=== PATIENT | female | born 1990 | race Caucasian/White ===

== ENCOUNTER 2016-12-07 22:20 | Outpatient (CLI) | payer OTHER ==
[2016-12-08 00:02] VITALS: BP 129/73; PULSE 92; RESP 16; TEMP 97.2
--- NOTE | 2016-12-25 10:55 | P.MSEPDOC ---
Presenting Problems - Arrival Data Date of Arrival on Unit: 12/07/16 Time of Arrival on Unit: 22:22 Mode of Transport: Ambulatory - Complaint OB-Reason for Admission/Chief Complaint: Possible Onset of Labor Comment: Pt states she has been having ctx all day but they have been 'about 3 minutes apart' for the last hour. Medical History - Information : 3 Para: 2 Term: 1 : 1 Abortions: Spontaneous or Elective: 0 Number of Living Children: 2 - Gestational Age Gestational Age by SARATH (wks/days): 36 Weeks and 1 Days - History Comment: Hx of delivery with last Review of Systems - Review of Systems Constitutional: No problems Breast: No problems ENT: No problems Cardiovascular: No problems Respiratory: No problems Gastrointestinal: No problems Genitourinary: No problems Musculoskeletal: No problems Neurological: No problems Skin: No problems Vital Signs - Temperature Temperature: 97.2 F Temperature Source: Tympanic - Pulse Pulse Oximetery Pulse Rate: 92 Pulse Assessment Method: Pulse Oximetry - Respirations Respiratory Rate: 16 Oxygen Delivery Method: Room Air O2 Sat by Pulse Oximetry: 100 - Blood Pressure Right Arm Blood Pressure: 129/73 Blood Pressure Mean: 91 Blood Pressure Source: Automatic Cuff Medical Screen Scoring (Pre) - Cervical Exam Dilation: 4-7 cm = 2 Effacement: More than 50% = 2 Membranes: Intact - Uterine Contractions Frequency: > 5 minutes apart = 1 Duration: > 40 seconds = 2 Intensity: N/A - Maternal Vital Signs Maternal Temperature: N/A Maternal Blood Pressure: N/A Signs of Preeclampsia: N/A Maternal Respirations: N/A - Maternal Trauma Maternal Trauma: N/A - Assessment Baseline FHR: 130 Heart Rate - NICHD Category: Category I (Normal) = 0 NST: Reactive Position: N/A Station: N/A - Total Score Total Score (Pre): 7 - Level of Risk Level of Risk: Medium (6-9) Physician Notification (Pre) - Physician Notified Physician Notified Date: 12/08/16 Physician Notified Time: 23:42 Physician/Practitioner Notifed:: Dr. Juarez Spoke With: Dr. Juarez New Order Received: Yes (Orders for discharge given.) Disposition - Disposition OB Disposition: Discharge to home Discharge Date: 12/07/16 Discharge Time: 23:51 I agree with the RN Medical Screening Exam: Yes Risk & Benefit of care provided described in d/c instruction: Yes Diagnosis: LABOR THIRD TRI W DELIVERY THIRD TRI, UNSP
== END 2016-12-07 23:51 | disposition home or self-care (01) ==
LOC: FBPOP 22:20
PROVIDERS: ATTEND Obstetrics & Gynecology Obstetrics
DX: O60.14X0 Preterm labor third trimester with preterm delivery third trimester, not applicable or unspecified (principal); Z3A.36 36 weeks gestation of pregnancy
CPT/HCPCS: 59025; 99213

== ENCOUNTER 2016-12-10 20:36 | Inpatient (IN) | payer OTHER ==
[2016-12-10] MEDS ORDERED: LIDOCAINE 1% (PF) 10 MG/ML (30 ML SDV) SQ PRN (20:59)
[2016-12-10] MEDS ORDERED: OXYTOCIN 10 UNIT/ML 1 ML VIAL IM PRN (20:59)
[2016-12-10] MEDS ORDERED: CARBOPROST TROMETHAMINE 250 MCG/ML 1 ML AMP IM PRN (20:59)
[2016-12-10] MEDS ORDERED: METHYLERGONOVINE 0.2 MG/ML 1 ML AMP IM PRN (20:59)
[2016-12-10] MEDS ORDERED: TERBUTALINE 1 MG/ML VIAL SQ PRN (20:59)
[2016-12-10] MEDS ORDERED: PENICILLIN G POTASSIUM 5,000,000 UNIT in DEXTROSE 5% IN WATER 100 ML IVPB STA ×2 (21:00)
[2016-12-10] MEDS ORDERED: LACTATED RINGERS 1,000 ML IV SCH (21:00)
[2016-12-10 21:45] LABS: Basophils % (A) 0 %; CH 27.3; CHCM 32.1; Eosinophils # (A) 0.1 k/uL (0-0.7); Eosinophils % (A) 1 %; HCT 38.6 % (34.0-46.0); HDW 2.83; HGB 12.4 gm/dL (11.4-16.0); Hypochromasia Slight; Luc # (Auto) 0.23; Luc % (Auto) 2; Lymphocytes # (A) 2.3 k/uL (1.0-4.8); Lymphocytes % (A) 21 %; MCH 27.5 pg (25.0-35.0); MCHC 32.2 g/dL (31.0-37.0); MCV 85.4 fL (80.0-100.0); Mean Platelet Volume 8.8; Monocytes # (A) 0.7 k/uL (0-1.0); Monocytes % (A) 7 %; Neutrophils # (A) 7.4 k/uL (1.3-7.7); Neutrophils % (A) 69 %; RBC 4.52 m/uL (3.80-5.40); RDW 12.8 % (11.5-15.5); WBC 10.7 k/uL (3.8-10.6); WBC (Perox) 10.66
--- NOTE | 2016-12-10 22:21 | P.HPOB ---
History of Present Illness H&P Date: 12/10/16 Chief Complaint: 36-3/7 weeks, active labor The patient is a 26-year-old 3 para 02/27/2003 admitted at 36-3/7 weeks as established by last menstrual period and confirmed by second trimester ultrasound. She is admitted in active labor with her cervix 6 cm dilated. Her has been uncomplicated though she is known to be group B strep positive. Obstetrical history: 3 para 02/27/2001 with 137 week delivery followed by one 36 week vaginal delivery, both been uncomplicated. Current statistics are listed in history of present illness. EDC of 01/04/2017 was established by last menstrual period and confirmed by second trimester ultrasound. Laboratory workup demonstrates a blood type of A+ with a negative antibody screen. Rubella status is immune. All other laboratory workup was within normal limits. Initial second trimester Glucola was elevated but followed by a normal three-hour glucose tolerance test. Group B strep status is positive. Gynecologic history: Unremarkable with no history of any infections to include STDs. Review of Systems In view of systems is confined to history of present illness. Past Medical History Past Medical History: No Reported History History of Any Multi-Drug Resistant Organisms: None Reported Past Surgical History: No Surgical Hx Reported Past Anesthesia/Blood Transfusion Reactions: No Reported Reaction Smoking Status: Never smoker Medications and Allergies Home Medications Medication Instructions Recorded Confirmed Type Pnv No.95/Ferrous Fum/Folic AC 1 each PO DAILY 12/04/16 12/10/16 History [ Multivitamin Tablet] Allergies Allergy/AdvReac Type Severity Reaction Status Date / Time No Known Allergies Allergy Verified 12/07/16 22:33 Exam - Vital Signs Vital signs: Vital Signs Temp Pulse Resp BP 12/10/16 20:48 97.9 F 91 16 128/61 Intake and Output 12/10/16 12/10/16 12/10/16 06:59 14:59 22:59 Other: Weight 80.739 kg Patient Weight 12/11/16 06:59 Weight 80.739 kg General, this is a well-developed, well-nourished white female in no acute distress. Her heart has a regular rhythm and rate without murmur. Her lungs are clear to auscultation bilaterally in all gambino. Her abdomen is gravid, nondistended, has normal active bowel sounds, is soft, nontender, and without any palpable masses aside from uterine fundus. Her extremities are without any cyanosis, clubbing, or edema and are nontender to palpation bilaterally. Digital cervical examination demonstrates her her cervix to be 6 cm dilated, 70 % effaced, the vertex in presentation at -2 station. Results Result Diagrams: 12/10/16 21:23 Abnormal Lab Results - Last 24 Hours (Table) 12/10/16 Range/Units 21:23 WBC 10.7 H (3.8-10.6) k/uL Assessment and Plan (1) Group B streptococcal infection in Status: Acute (2) Active labor Status: Acute Plan: The patient is admitted for active management of labor. She has declined epidural analgesia at this time. She will continue to have close maternal and surveillance and expectant management will be practiced. Antibiotic prophylaxis has been started for group B strep. Her bag of water will be left intact and attempt to get adequate antibiotic coverage for the prior to delivery.
[2016-12-10 22:41] VITALS: BMI 30.5
[2016-12-11] MEDS: PENICILLIN G POTASSIUM 2,500,000 UNIT in DEXTROSE 5% IN WATER 100 ML IVPB SCH ×4 (01:36→05:26)
[2016-12-11] MEDS: OXYTOCIN 20 UNITS/1000 ML NS 1,000 ML IV SCH ×2 (01:36→01:42)
[2016-12-11] MEDS ORDERED: LANOLIN CREAM 5 GM TUBE TOPICAL PRN (05:26)
[2016-12-11] MEDS ORDERED: diphenhydrAMINE 50 MG CAP PO PRN (05:26)
[2016-12-11] MEDS ORDERED: BENZOCAINE/MENTHOL SPRAY 1 GM/SPRAY AEROSOL TOPICAL PRN (05:26)
[2016-12-11] MEDS ORDERED: ZOLPIDEM 5 MG TAB PO PRN (05:26)
[2016-12-11] MEDS ORDERED: Acetaminophen-Codeine 300-30mg TAB PO PRN ×2 (05:26)
[2016-12-11] MEDS ORDERED: diphenhydrAMINE 50 MG/ML 1 ML VIAL IVP PRN ×2 (05:26)
[2016-12-11] MEDS ORDERED: HYDROCORTISONE 2.5% RECTAL CREAM 30 GM TUBE RECTAL PRN (05:26)
[2016-12-11] MEDS ORDERED: diphenhydrAMINE 25 MG CAP PO PRN (05:26)
[2016-12-11] MEDS ORDERED: WITCH HAZEL 1 EACH MED..PAD TOPICAL PRN (05:26)
[2016-12-11] MEDS ORDERED: SIMETHICONE 80 MG CHEWABLE PO PRN (05:26)
[2016-12-11] MEDS ORDERED: ACETAMINOPHEN TAB 325 MG TAB PO PRN (05:26)
[2016-12-11] MEDS ORDERED: OXYTOCIN 20 UNITS/1000 ML NS 1,000 ML IV SCH (05:30)
--- NOTE | 2016-12-11 05:30 | P.PROBDLV ---
Vaginal Delivery Note - . Vaginal Delivery Note: The patient is a 26-year-old 3 para 02/27/2003 admitted at 36-3/7 weeks by good dating parameters. She is admitted in early active labor with all signs reassuring as her cervix was 6-7 cm dilated. Her was entirely uncomplicated aside from her labor and group B strep colonization. She was however quite comfortable upon admission and remained so after an IV and antibody prophylaxis was started for group B strep. Her contraction pattern spaced to a fair extent and the intention was to leave her membranes intact until 4 hours after the initial dose of antibiotic for group B strep prophylaxis. Proximate 4 hours after the antibiotic, Pitocin augmentation was started. She remained comfortable over the next couple of hours. Once she got into an adequate labor pattern, artificial rupture of membranes was carried out demonstrating clear fluid. She then progressed quickly to complete and 0 station. She pushed over the course of 1 contraction to a normal spontaneous vaginal delivery of a viable 6 lbs. 12 oz. baby girl with Apgars of 8 at 1 minute and 9 at 5 minutes delivered in the right occiput anterior position. The placenta was delivered spontaneously, intact, and grossly normal with a grossly normal, centrally inserted three-vessel cord. There were no lacerations of the perineum, vagina, or cervix. Estimated blood loss for the case was approximately 100 mL. There were no complications. All sponge, instrument, and needle counts were correct. Both mother and are resting comfortably in recovery. The infant has showed no signs of special care assistance.
[2016-12-11] MEDS: SENNOSIDES-DOCUSATE SODIUM 1 EACH TAB PO SCH ×2 (07:42→22:20)
[2016-12-11] MEDS: IBUPROFEN 600 MG TAB PO PRN ×3 (07:42→21:01)
--- NOTE | 2016-12-12 08:10 | P.DS ---
Providers Date of admission: 12/10/16 21:00 Expected date of discharge: 12/12/16 Attending physician: Kuldip Morrison Primary care physician: Melody Joseph [facility] Hospital Course: This is a 26-year-old white female 3 para 2002 EDC 01/04/2017 at 36-3/7 weeks' gestation. Patient presented in spontaneous active labor, essentially unremarkable. Group B strep cultures were positive, patient was treated with penicillin G per protocol. Please see dictated history and physical for details. Patient delivered a liveborn female infant vaginally, scores 8 and 9 at one and 5 minutes respectively. Infant weighed 6 lbs. 12 oz. or 3065 g. Estimated blood loss was 100 mL, there were no lacerations or defects to repair. Please see dictated delivery note for details. Patient is doing well today. She is voiding, ambulating and passing flatus without difficulty. Vital signs are stable and she is afebrile. Fundus is firm and in the midline, symmetric and 18 week size. Extremities are negative for edema. Orcas infant is doing well. Patient is being discharged home later today in very good condition. She will follow-up in the office with me in 6 weeks. I have reminded her no intercourse , tampons or douching. She will use [id number] Motrin products as needed for pain. I have given her prescription for a double electric breast pump. Patient will call with any fevers shakes or chills, foul smelling or copious lochia, with the passage of large blood clots, with any pain not alleviated by [id number] products, or indeed with any concerns. Patient Condition at Discharge: Good Plan - Discharge Summary New Discharge Prescriptions: No Action Pnv No.95/Ferrous Fum/Folic AC [ Multivitamin Tablet] 1 each PO DAILY Discharge Medication List Pnv No.95/Ferrous Fum/Folic AC [ Multivitamin Tablet] 1 each PO DAILY [History] Follow up Appointment(s)/Referral(s): Melody Joseph MD [Primary Care Provider] - 6 Weeks Discharge Disposition: HOME SELF-CARE
[2016-12-12 08:22] VITALS: BP 120/69; PULSE 66; RESP 20; TEMP 97.8
[2016-12-12] MEDS: SENNOSIDES-DOCUSATE SODIUM 1 EACH TAB PO SCH (08:37)
[2016-12-12] MEDS: IBUPROFEN 600 MG TAB PO PRN (10:00)
== END 2016-12-12 11:30 | disposition home or self-care (01) | DRG 775 ==
LOC: FBPOP 20:36 → 4FBP 21:00
PROVIDERS: ADMIT Obstetrics & Gynecology; ATTEND Obstetrics & Gynecology
PROC: 10E0XZZ Delivery of Products of Conception, External Approach (ICD-10-PCS; principal; 2016-12-10)
PROC: 10907ZC Drainage of Amniotic Fluid, Therapeutic from Products of Conception, Via Natural or Artificial Opening (ICD-10-PCS; principal; 2016-12-10)
DX: O60.14X0 Preterm labor third trimester with preterm delivery third trimester, not applicable or unspecified (principal); O99.824 Streptococcus B carrier state complicating childbirth; Z37.0 Single live birth; Z3A.36 36 weeks gestation of pregnancy
CPT/HCPCS: 59025; 85025; 88307; 99213

== ENCOUNTER 2021-09-22 09:30 | Inpatient (IN) | payer BC ==
[2021-09-22] MEDS ORDERED: SODIUM CHLORIDE 0.9% 1,000 ML IV STA (09:45)
[2021-09-22 10:13] LABS: Basophils # (A) 0.1 k/uL (0-0.2); Basophils % (A) 1 %; Eosinophils # (A) 0.1 k/uL (0-0.7); Eosinophils % (A) 1 %; HCT 47.2 % (34.0-46.0); HGB 15.3 gm/dL (11.4-16.0); Lymphocytes # (A) 2.3 k/uL (1.0-4.8); Lymphocytes % (A) 37 %; MCH 30.1 pg (25.0-35.0); MCHC 32.4 g/dL (31.0-37.0); MCV 92.8 fL (80.0-100.0); Mean Platelet Volume 7.8; Monocytes # (A) 0.4 k/uL (0-1.0); Monocytes % (A) 6 %; Neutrophils # (A) 3.3 k/uL (1.3-7.7); Neutrophils % (A) 53 %; Platelet Count 265 k/uL (150-450); RBC 5.08 m/uL (3.80-5.40); RDW 12.4 % (11.5-15.5); WBC 6.2 k/uL (3.8-10.6)
--- NOTE | 2021-09-22 10:14 | ED ---
Neuro HPI - General Chief Complaint: Neuro Symptoms/Deficit Stated Complaint: speech concerns, headache Time Seen by Provider: 09/22/21 09:45 Source: patient, family, RN notes reviewed Mode of arrival: ambulatory Limitations: no limitations - History of Present Illness Is the patient presenting with stroke symptoms?: Yes Initial Comments: 31-year-old female with no prior history of migraine headaches or history of stroke like symptoms who states she went to bed at 11 PM last night feeling her usual self woke up this morning with a left-sided headache and also trouble processing information with respect to verbal and written words. He also trouble expressing herself in a timely fashion no blurry vision no dysphasia no focal weakness to her upper or lower extremities no ataxic type symptoms. She states the headache was left temporal pole in location and achy dull with some shooting type pains mild to moderate in severity. She did take a Motrin about 1 hour prior to arrival she states. No other current complaints or modifying factors - Related Data Home Medications: Home Medications Medication Instructions Recorded Confirmed No Known Home Medications 09/22/21 09/22/21 Allergies/Adverse Reactions: Allergies Allergy/AdvReac Type Severity Reaction Status Date / Time No Known Allergies Allergy Verified 09/22/21 10:43 Review of Systems ROS Statement: Those systems with pertinent positive or pertinent negative responses have been documented in the HPI. ROS Other: All systems not noted in ROS Statement are negative. General Exam - General Exam Comments Initial Comments: This is a well-developed well-nourished awake alert oriented 4 female Limitations: no limitations General appearance: alert, anxious Head exam: Present: atraumatic, normocephalic, normal inspection Eye exam: Present: normal appearance, PERRL, EOMI. Absent: scleral icterus, conjunctival injection, periorbital swelling ENT exam: Present: normal exam, mucous membranes moist Neck exam: Present: normal inspection, full ROM, other (No stridor JVD or bruits). Absent: tenderness, meningismus, lymphadenopathy Respiratory exam: Present: normal lung sounds bilaterally. Absent: respiratory distress, wheezes, rales, rhonchi, stridor Cardiovascular Exam: Present: regular rate, normal rhythm, normal heart sounds. Absent: systolic murmur, diastolic murmur, rubs, gallop, clicks GI/Abdominal exam: Present: soft, normal bowel sounds. Absent: distended, tenderness, guarding, rebound, rigid Extremities exam: Present: normal inspection, full ROM, normal capillary refill. Absent: tenderness, pedal edema, joint swelling, calf tenderness Back exam: Present: normal inspection Neurological exam: Present: alert, oriented X3, CN II-XII intact Psychiatric exam: Present: normal affect, normal mood Skin exam: Present: warm, dry, intact, normal color. Absent: rash Stroke MDM - Lab Data Result diagrams: 09/22/21 09:51 09/22/21 09:51 Lab Results 09/22/21 09/22/21 09/22/21 Range/Units 09:51 09:51 09:51 WBC 6.2 (3.8-10.6) k/uL RBC 5.08 (3.80-5.40) m/uL Hgb 15.3 (11.4-16.0) gm/dL Hct 47.2 H (34.0-46.0) % MCV 92.8 (80.0-100.0) fL MCH 30.1 (25.0-35.0) pg MCHC 32.4 (31.0-37.0) g/dL RDW 12.4 (11.5-15.5) % Plt Count 265 (150-450) k/uL MPV 7.8 Neutrophils % 53 % Lymphocytes % 37 % Monocytes % 6 % Eosinophils % 1 % Basophils % 1 % Neutrophils # 3.3 (1.3-7.7) k/uL Lymphocytes # 2.3 (1.0-4.8) k/uL Monocytes # 0.4 (0-1.0) k/uL Eosinophils # 0.1 (0-0.7) k/uL Basophils # 0.1 (0-0.2) k/uL PT 10.8 (9.0-12.0) sec INR 1.0 (<1.2) APTT 25.5 (22.0-30.0) sec Sodium 139 (137-145) mmol/L Potassium 4.5 (3.5-5.1) mmol/L Chloride 106 (98-107) mmol/L Carbon Dioxide 27 (22-30) mmol/L Anion Gap 6 mmol/L BUN 16 (7-17) mg/dL Creatinine 0.78 (0.52-1.04) mg/dL Est GFR (CKD-EPI)AfAm >90 (>60 ml/min/1.73 sqM) Est GFR (CKD-EPI)NonAf >90 (>60 ml/min/1.73 sqM) Glucose 99 (74-99) mg/dL Calcium 9.1 (8.4-10.2) mg/dL Magnesium 2.0 (1.6-2.3) mg/dL Total Bilirubin 0.5 (0.2-1.3) mg/dL AST 19 (14-36) U/L ALT 15 (4-34) U/L Alkaline Phosphatase 54 (38-126) U/L Creatine Kinase 44 (30-135) U/L Troponin I (0.000-0.034) ng/mL C-Reactive Protein <0.5 (<1.0) mg/dL Total Protein 6.7 (6.3-8.2) g/dL Albumin 4.2 (3.5-5.0) g/dL TSH 1.300 (0.465-4.680) mIU/L 09/22/21 Range/Units 09:51 WBC (3.8-10.6) k/uL RBC (3.80-5.40) m/uL Hgb (11.4-16.0) gm/dL Hct (34.0-46.0) % MCV (80.0-100.0) fL MCH (25.0-35.0) pg MCHC (31.0-37.0) g/dL RDW (11.5-15.5) % Plt Count (150-450) k/uL MPV Neutrophils % % Lymphocytes % % Monocytes % % Eosinophils % % Basophils % % Neutrophils # (1.3-7.7) k/uL Lymphocytes # (1.0-4.8) k/uL Monocytes # (0-1.0) k/uL Eosinophils # (0-0.7) k/uL Basophils # (0-0.2) k/uL PT (9.0-12.0) sec INR (<1.2) APTT (22.0-30.0) sec Sodium (137-145) mmol/L Potassium (3.5-5.1) mmol/L Chloride (98-107) mmol/L Carbon Dioxide (22-30) mmol/L Anion Gap mmol/L BUN (7-17) mg/dL Creatinine (0.52-1.04) mg/dL Est GFR (CKD-EPI)AfAm (>60 ml/min/1.73 sqM) Est GFR (CKD-EPI)NonAf (>60 ml/min/1.73 sqM) Glucose (74-99) mg/dL Calcium (8.4-10.2) mg/dL Magnesium (1.6-2.3) mg/dL Total Bilirubin (0.2-1.3) mg/dL AST (14-36) U/L ALT (4-34) U/L Alkaline Phosphatase (38-126) U/L Creatine Kinase (30-135) U/L Troponin I <0.012 (0.000-0.034) ng/mL C-Reactive Protein (<1.0) mg/dL Total Protein (6.3-8.2) g/dL Albumin (3.5-5.0) g/dL TSH (0.465-4.680) mIU/L - NIH Stroke Scale 1a. Level of Consciousness: (0) alert 1b. LOC Questions: (0) answers correctly 1c. LOC Commands: (0) performs tasks correctly 2. Best Gaze: (0) normal 3. Visual: (0) no visual loss 4. Facial Palsy: (0) normal symmetrical movement 5a. Motor Arm Left: (0) no drift 5b. Motor Arm Right: (0) no drift 6a. Motor Leg Left: (0) no drift 6b. Motor Leg Right: (0) no drift 7. Limb Ataxia: (0) absent 8. Sensory: (0) normal 9. Best Language: (0) no aphasia 10. Dysarthria: (0) normal 11. Extinction/Inattention: (0) no abnormality - Medical Decision Making Image reviewed no acute processes seen. I did have a discussion the patient family. The findings patient apparently is still having episodes that appear to be consistent with expressive aphasia and possibly receptive aphasia. The case with family as well as with rid patient be admitted with consultation by neurology. Patient does seem to think that she is improving. - EKG Data -: EKG Interpreted by Me EKG shows normal: sinus rhythm (Normal sinus rhythm of 79 ID interval 175 QRS duration 84 QT/QTC 373/[address]-T wave changes) Past Medical History Past Medical History: No Reported History History of Any Multi-Drug Resistant Organisms: None Reported Past Surgical History: No Surgical Hx Reported Past Anesthesia/Blood Transfusion Reactions: No Reported Reaction Past Psychological History: No Psychological Hx Reported Smoking Status: Never smoker Past Alcohol Use History: None Reported Past Drug Use History: None Reported - Past Family History Mother Family Medical History: No Reported History Course Vital Signs 09/22/21 09/22/21 09/22/21 09:33 10:30 10:36 Temperature 98 F Pulse Rate 100 82 82 Respiratory 18 16 16 Rate Blood Pressure 104/68 108/77 108/77 O2 Sat by Pulse 99 99 99 Oximetry 09/22/21 09/22/21 09/22/21 10:45 11:00 11:15 Temperature Pulse Rate 76 78 71 Respiratory 15 16 16 Rate Blood Pressure 110/74 116/80 107/74 O2 Sat by Pulse 96 98 97 Oximetry 09/22/21 11:36 Temperature Pulse Rate 78 Respiratory 16 Rate Blood Pressure 107/74 O2 Sat by Pulse 100 Oximetry Critical Care Time Critical Care Time: Yes Total Critical Care Time: 31 Critical Care Time: Care time included initial presentation with history physical labs x-rays pat ient was a code stroke. Evaluation patient several occasions discussion with patient family members. Discussed with the admitting physician admission orders and documentation of the above Disposition Clinical Impression: Cerebrovascular accident (CVA) Disposition: ADMITTED IP TO THIS [facility] Condition: Stable Referrals: None,Stated [Primary Care Provider] - 1-2 days Decision Date: 09/22/21 Decision Time: 13:00
[2021-09-22 10:27] LABS: ALT 15 U/L (4-34); AST 19 U/L (14-36); African American GFR (CKD) >90 (>60 ml/min/1.73 sqM); Albumin 4.2 g/dL (3.5-5.0); Alkaline Phosphatase 54 U/L (38-126); Anion Gap 6 mmol/L; Blood Urea Nitrogen 16 mg/dL (7-17); Calcium 9.1 mg/dL (8.4-10.2); Carbon Dioxide 27 mmol/L (22-30); Chloride 106 mmol/L (98-107); Creatine Kinase 44 U/L (30-135); Glucose 99 mg/dL (74-99); Non-African American GFR(CKD) >90 (>60 ml/min/1.73 sqM); Potassium 4.5 mmol/L (3.5-5.1); Sodium 139 mmol/L (137-145); Total Bilirubin 0.5 mg/dL (0.2-1.3); Total Protein 6.7 g/dL (6.3-8.2)
[2021-09-22 10:28] LABS: Partial Thromboplastin Time 25.5 sec (22.0-30.0); Prothrombin Time 10.8 sec (9.0-12.0)
--- NOTE | 2021-09-22 10:28 | CT ---
EXAMINATION TYPE: CT brain wo con for TPA DATE OF EXAM: 09/22/2021 COMPARISON: None HISTORY: 31-year-old female Neuro deficit, acute, stroke suspected. Intermittent slurred speech, expr essive aphasia, headache TECHNIQUE: Examination was done in axial plane without intravenous contrast. Coronal and sagittal r econstructions performed. CT DLP: 1099.6 mGycm Automated exposure control for dose reduction was used. FINDINGS: There is no evidence of acute intracranial hemorrhage, acute ischemic changes, mass, mass-effect, or extra-axial fluid collection. There is no effacement of cerebral sulci or basal subarachnoid cister ns. There is no hydrocephalus. Slightly smaller left lateral ventricle likely congenital variation. There is no midline shift. Booth-white matter distinction is preserved. Paranasal sinuses and mastoid air cells well pneumatized. Orbits and globes are intact. IMPRESSION: No acute intracranial abnormality seen.
--- NOTE | 2021-09-22 10:55 | CT ---
EXAMINATION TYPE: CT angio head neck CT DLP: 487.1 mGycm, Automated exposure control for dose reduction was used. DATE OF EXAM: 09/22/2021 10:38 AM COMPARISON: CT head of the same date. CLINICAL INDICATION:Female, 31 years old with history of Neuro deficit, acute, stroke suspected; PHH, Neuro deficit TECHNIQUE: Axially acquired helical CT angiogram of the head and neck was obtained with contrast util izing 75 cc of Isovue-370 administered intravenously. Axial images are supplemented with 3D reconstru ctions which were post-processed at an independent workstation. NASCET criteria used. FINDINGS: CTA HEAD: No evidence of acute intracranial hemorrhage, mass effect, or midline shift. The ventricles, sulci, a nd cisterns are unremarkable. The visualized portions of the internal carotid arteries, middle cerebral arteries, anterior cerebral arteries, and posterior cerebral arteries are patent. The basilar and vertebral arteries are patent. CTA NECK: Right Carotid System: The common carotid artery and external carotid artery are patent. The carotid bifurcation demonstrate s no evidence of hemodynamically significant stenosis. The remaining portions of the internal carotid artery demonstrate normal size without significant narrowing. Left Carotid System: The common carotid artery and external carotid artery are patent. The carotid bifurcation demonstrate s no evidence of hemodynamically significant stenosis. The remaining portions of the internal carotid artery demonstrate normal size without significant narrowing. Vertebral arteries are patent without evidence hemodynamically significant stenosis. There is a bovine aortic arch. The origins of the great vessels are patent. No evidence of hemodynami abi significant stenosis. IMPRESSION: 1. No evidence of dissection of the cervical internal carotid arteries or vertebral arteries or any e vidence of significant stenosis at the carotid bifurcations. 2. No evidence of high-grade stenosis or intracranial aneurysm.
--- NOTE | 2021-09-22 10:58 | XR ---
EXAMINATION TYPE: XR chest 2V DATE OF EXAM: 09/22/2021 COMPARISON: NONE TECHNIQUE: PA and lateral views submitted. HISTORY: Altered mental status FINDINGS: The lungs are clear and there is no pneumothorax, pleural effusion, or focal pneumonia. Heart size normal. No failure. IMPRESSION: 1. No acute process.
[2021-09-22 11:40] LABS: C Reactive Protein <0.5 mg/dL (<1.0)
--- NOTE | 2021-09-22 13:49 | P.HPIM ---
History of Present Illness H&P Date: 09/22/21 Chief Complaint: left sided headache, slurred speech 31-year-old woman with no significant medical history except for migraines presented for left-sided headache and slurred speech. Patient says that she went to sleep around 11 PM yesterday and felt in her usual state of health, however, when she woke up this morning she had slurred speech and left-sided headache. She also had some numbness of her face. Family at bedside also notes the patient had difficulty expressing words and reading words out loud despite showing recognition and understanding of the wart itself. Given the concern of slurred speech, she came to the emergency room for further evaluation at the request of her [id number]. She denies fevers, chills, nausea, vomiting, chest pain, palpitations, syncope, presyncope, cough, dyspnea, abdominal pain, constipation, diarrhea, dysuria, dyschezia, numbness/weakness of extremities. She also denies photophobia, phonophobia, visual changes. She denies difficulty swallowing. Patient further denies drinking, drugs, smoking. She's never been diagnosed with hyperlipidemia. She does not have a family history of strokes. She has never had an issue like this before. However, notably she reports that when she's had migraines in the past she has visual changes which she loses half of her revision depending on the side in which she has migraine. In the emergency room, patient was afebrile, 108/77, heart rate 82, 99% on room air. CBC, chemistries, liver function tests were all unremarkable. Coags were unremarkable. Initial troponin was less than 0.012. CRP was less than 0.5. TSH was 1.3. CK was 44. Brain CT was negative for acute intracranial abnormality. CT angiography of the head and neck showed no evidence of dissection of the cervical internal carotid arteries and vertebral arteries or any significant stenosis. Chest x-ray appeared normal. EKG demonstrated normal sinus rhythm with normal axis and no ischemic changes. All Systems reviewed and pertinent positives and negatives noted in HPI, all other symptoms are negative Gen: in no apparent distress, resting comfortably in bed Eyes: PERRL, no scleral injection or icterus HENT: normocephalic, atraumatic, good hearing acuity, moist mucous membranes Neck: no tracheal deviation, full range of motion Resp: good air exchange, breathing comfortably with no accessory muscle use, no tactile fremitus CVS: good distal perfusion x 4, no pitting edema GI: soft, NTTP, ND, no hepatosplenomegaly : no suprapubic tenderness, no CVAT, christine catheter not present MSK: no clubbing, no cyanosis, no noted contractures of extremities Skin: no noted rashes, petechiae; temperature of skin is appropriate Neuro: moving all extremities without signs of weakness, CN II-XII intact Psych: cooperative, euthymic mood, insight and judgment intact Labs and imaging reviewed as above Assessment/plan: Left-sided headache Slurred speech Aphasia (Suspect this is complex migraines versus less likely TIA) -Admit to observation, telemetry -Neurology consult -TSH, A1c, lipid panel -MRI pending -Echo pending -PT/OT/ST Patient is full code Past Medical History Past Medical History: No Reported History History of Any Multi-Drug Resistant Organisms: None Reported Past Surgical History: No Surgical Hx Reported Past Anesthesia/Blood Transfusion Reactions: No Reported Reaction Past Psychological History: No Psychological Hx Reported Smoking Status: Never smoker Past Alcohol Use History: None Reported Past Drug Use History: None Reported - Past Family History Mother Family Medical History: No Reported History Medications and Allergies Home Medications Medication Instructions Recorded Confirmed Type No Known Home Medications 09/22/21 09/22/21 History Allergies Allergy/AdvReac Type Severity Reaction Status Date / Time No Known Allergies Allergy Verified 09/22/21 10:43 Physical Exam Osteopathic Statement: *. No significant issues noted on an osteopathic structural exam other than those noted in the History and Physical/Consult. Vitals: Vital Signs Temp Pulse Resp BP Pulse Ox 09/22/21 11:36 78 16 107/74 100 09/22/21 11:15 71 16 107/74 97 09/22/21 11:00 78 16 116/80 98 09/22/21 10:45 76 15 110/74 96 09/22/21 10:36 82 16 108/77 99 09/22/21 10:30 82 16 108/77 99 09/22/21 09:33 98 F 100 18 104/68 99 Intake and Output 09/21/21 09/22/21 09/22/21 22:59 06:59 14:59 Other: Weight 74.843 kg Results CBC & Chem 7: 09/22/21 09:51 09/22/21 09:51 Labs: Abnormal Lab Results - Last 24 Hours (Table) 09/22/21 Range/Units 09:51 Hct 47.2 H (34.0-46.0) %
[2021-09-22] MEDS: ACETAMINOPHEN TAB 325 MG TAB PO PRN ×2 (15:24→21:10)
[2021-09-22] MEDS: SODIUM CHLORIDE 0.9% 1,000 ML IV SCH (15:24)
[2021-09-23] MEDS: SODIUM CHLORIDE 0.9% 1,000 ML IV SCH ×3 (01:02→21:00)
[2021-09-23 05:51] LABS: Basophils % (A) 0 %; Eosinophils # (A) 0.1 k/uL (0-0.7); Eosinophils % (A) 2 %; HCT 43.5 % (34.0-46.0); HGB 14.1 gm/dL (11.4-16.0); Lymphocytes # (A) 2.2 k/uL (1.0-4.8); Lymphocytes % (A) 41 %; MCH 30.7 pg (25.0-35.0); MCHC 32.5 g/dL (31.0-37.0); MCV 94.5 fL (80.0-100.0); Mean Platelet Volume 7.8; Monocytes # (A) 0.3 k/uL (0-1.0); Monocytes % (A) 6 %; Neutrophils # (A) 2.6 k/uL (1.3-7.7); Neutrophils % (A) 49 %; Platelet Count 238 k/uL (150-450); RDW 12.9 % (11.5-15.5); WBC 5.3 k/uL (3.8-10.6)
[2021-09-23 06:06] LABS: African American GFR (CKD) >90 (>60 ml/min/1.73 sqM); Anion Gap 2 mmol/L; Blood Urea Nitrogen 13 mg/dL (7-17); Calcium 8.7 mg/dL (8.4-10.2); Carbon Dioxide 26 mmol/L (22-30); Chloride 108 mmol/L (98-107); Glucose 80 mg/dL (74-99); Magnesium 2.1 mg/dL (1.6-2.3); Non-African American GFR(CKD) >90 (>60 ml/min/1.73 sqM); Potassium 4.6 mmol/L (3.5-5.1); Sodium 136 mmol/L (137-145)
[2021-09-23] MEDS ORDERED: ASPIRIN 81 MG PO STA (08:18)
--- NOTE | 2021-09-23 08:18 | P.CNNES ---
History of Present Illness Consult date: 09/22/21 Requesting physician: Kip Titus Reason for Consult: TIA History of Present Illness: Patient is a 31-year-old female with history of migraine with aura came to the hospital today at 9:30 AM for possible TIA versus complex migraine. Patient states that she was fine yesterday. This morning she woke up at 7 AM and had a bad headache pointing to the left temporal region. She rated at 6/10. While she was in bed, she turned over and look at the cell phone and went on social media. She tried to read, could not follow and felt some visual disturbance on the right side, almost as if some words for flushing. She tried to talk to her toddler, and speech was affected, couldn't speak quickly, was speaking slow with effort. She was fine walking and there was no numbness tingling or focal weakness. No dizziness. She talked to her mom, who noticed that patient was talking "funny". At 8:04 AM she texted her that she was feeling bad, cannot read, cannot write and her speech is affected. Her called her and in the beginning she was talking fine, but then she started speaking which she could not understand at all. Patient started crying on the phone. Patient's talked to the kids who told the mom was talking "super slow" and they could not understand her. Her headache persisted and she kept trying to read words and could not read right. She took ibuprofen 800 mg. She was having some paraphasic errors, as she said closet instead of pocket. Her motor skills were fine. She never had anything like this. Patient's brought her to the hospital and arrived here at 9:30 AM. Vital signs on arrival blood pressure 104/68, pulse rate 100 temperature 98.0. Blood test shows normal CBC, PT/PTT, normal CMP. TSH is normal. CT head showed no acute intracranial abnormality. I personally reviewed CT head, agree with the findings. CTA of head and neck revealed no evidence of dissection of the cervical internal carotid arteries or vertebral arteries or any evidence of sig nificant stenosis at the carotid bifurcations. No evidence of high-grade stenosis or intracranial aneurysm. EKG shows sinus rhythm. Chest x-ray shows no acute process. Patient does not take any medications at home. Patient is otherwise very healthy. She does not take any control pills although she does have copper containing IUD. Patient states that she has had headache all day, and after taking Tylenol, it has come down to 1/10 at this time. Her speech has improved almost back to baseline. Patient states that she had her first migraine with aura when she was age 14 in which she developed visual disturbance, as she remembers when she was having the symptom, she was not able to see one half of her mother's face. She did have a mild headache present. She took Tylenol and the symptoms went away. She has been having migraine with aura consisting of visual disturbance with m issing part of the vision off and on. These are occurring about 2 or 3 times a year. She usually takes ibuprofen, turns things off, lays down and the headache resolves within an hour. She never had any speech difficulty in the past. Her migraines are about 5-6/10 on a pain scale. Patient denies any excessive caffeine, sore intake. She denies any tobacco or alcohol. Patient does have strong family history of migraines in her mother, grandmother, but not in her children. Review of Systems All 14 points of review of system reviewed, unremarkable except as mentioned above in detail. Past Medical History Past Medical History: No Reported History History of Any Multi-Drug Resistant Organisms: None Reported Past Surgical History: No Surgical Hx Reported Past Anesthesia/Blood Transfusion Reactions: No Reported Reaction Past Psychological History: No Psychological Hx Reported Smoking Status: Never smoker Past Alcohol Use History: None Reported Past Drug Use History: None Reported - Past Family History Mother Family Medical History: No Reported History Medications and Allergies Home Medications Medication Instructions Recorded Confirmed Type No Known Home Medications 09/22/21 09/22/21 History Allergies Allergy/AdvReac Type Severity Reaction Status Date / Time No Known Allergies Allergy Verified 09/22/21 10:43 Physical Examination - Vital Signs Vital Signs: Vital Signs Temp Pulse Resp BP Pulse Ox 09/22/21 15:34 69 18 106/65 99 09/22/21 14:34 68 16 102/71 98 09/22/21 13:34 71 16 107/70 98 09/22/21 11:36 78 16 107/74 100 09/22/21 11:15 71 16 107/74 97 09/22/21 11:00 78 16 116/80 98 09/22/21 10:45 76 15 110/74 96 09/22/21 10:36 82 16 108/77 99 09/22/21 10:30 82 16 108/77 99 09/22/21 09:33 98 F 100 18 104/68 99 Intake and Output 09/22/21 09/22/21 09/22/21 06:59 14:59 22:59 Other: Weight 74.843 kg Patient is a young female, very pleasant, in no acute distress. Patient is alert awake oriented to time place and person. Speech and language functions are normal. Patient can name and repeat very well. Attention, concentration and fund of knowledge is adequate. On cranial examination, pupils are equal, round and reacting to light, visual gambino are full on confrontation, extraocular muscles are intact with no nystagmus. Face is symmetric, tongue protrudes to the midline. Palatal elevation and sensation normal, hearing and shoulder shrug normal, facial sensation normal. Shoulder shrug normal. On muscle strength testing, there is no pronator drift and the strength is normal in arms and legs distally and proximally. Deep tendon reflexes are 1 in the upper limbs, 2 at the knees 1 ankles and plantars downgoing bilaterally. Sensory to touch is equal with no neglect. Cerebellar function showed no ataxia for lqjukl-so-lqvv testing. No dysdiadochokinesia. Tone and bulk of muscles normal. Gait deferred. On general examination, there is no carotid bruit or murmur, S1-S2 audible. Abdomen is soft nontender. No organomegaly, bowel sounds present. Chest is clear. Peripheral pulses are present. No edema. Results - Laboratory Findings CBC and BMP: 09/23/21 05:16 09/23/21 05:16 Abnormal Lab Findings: Abnormal Labs 09/22/21 09:51 Hct 47.2 H Assessment and Plan Assessment: * Probable complex migraine. TIA less likely. * History of migraine with aura. * Strong family history of migraines. * Use of copper containing IUD. Plan: * Patient is undergoing TIA workup with MRI of the brain, 2-D echo * Hemoglobin A1c, lipid panel. * Her symptoms have mostly resolved. * Aspirin 324 mg 1 dose. * If the TIA workup is negative, then would recommend discharge on Imitrex 50 mg or Fioricet as needed for migraine. * Continue telemetry monitoring. * Neurology will follow. Thank you for the consult.
[2021-09-23 09:07] LABS: Chol/HDL Ratio 2.74 Ratio; LDL Cholesterol,Calculated 67.2 mg/dL (0.0-131.0); VLDL Calculation 10.24 mg/dL (5.00-40.00)
--- NOTE | 2021-09-23 09:24 | CA ---
Transthoracic Echo Report Name: Elijah Ramsay Age: 31 Gender: F : 1990 Exam Date: 09/22/2021 15:51 Exam Location: [place] [facility] Ht (in): 64 Wt (lb): 165 Ordering Physician: Tesfaye Malagon MD Attending/Referring Phys: [employer] Sakina Avitia RDCS Procedure CPT: Indications: aphasia Cardiac Hx: Technical Quality: Good Contrast 1: Total Dose (mL): Contrast 2: Total Dose (mL): MEASUREMENTS (Male / Female) Normal Values 2D ECHO LV Diastolic Diameter PLAX 4.1 cm 4.2 - 5.9 / 3.9 - 5.3 cm LV Systolic Diameter PLAX 2.4 cm IVS Diastolic Thickness 0.9 cm 0.6 - 1.0 / 0.6 - 0.9 cm LVPW Diastolic Thickness 0.9 cm 0.6 - 1.0 / 0.6 - 0.9 cm LV Relative Wall Thickness 0.4 RV Internal Dim ED PLAX 3.1 cm LA Systolic Diameter LX 2.8 cm 3.0 - 4.0 / 2.7 - 3.8 cm LA Volume 31.1 cm??? 18 - 58 / 22 - 52 cm??? M-MODE Aortic Root Diameter MM 2.7 cm MV E Point Septal Separation 0.3 cm AV Cusp Separation MM 1.7 cm DOPPLER AV Peak Velocity 134.4 cm/s AV Peak Gradient 7.2 mmHg MV Area PHT 3.8 cm??? Mitral E Point Velocity 83.9 cm/s Mitral A Point Velocity 75.9 cm/s Mitral E to A Ratio 1.1 MV Deceleration Time 202.0 ms MV E' Velocity 10.0 cm/s Mitral E to MV E' Ratio 8.4 FINDINGS Left Ventricle Left ventricular ejection fraction is estimated at 55-60 %. Left ventricular cavity size normal. Left ventricular wall thickness normal. Right Ventricle Normal right ventricular size and function. Unable to estimate the right ventricular systolic pressure. Right Atrium Normal right atrial size. Left Atrium Normal left atrial size. No evidence for an atrial septal defect. Mitral Valve Structurally normal mitral valve. No mitral stenosis, regurgitation or prolapse. Aortic Valve Trileaflet aortic valve. No aortic valve stenosis or regurgitation. Tricuspid Valve Structurally normal tricuspid valve. No tricuspid stenosis, regurgitation or prolapse. Pulmonic Valve Structurally normal pulmonic valve. Pericardium Normal pericardium. No pericardial effusion. Aorta Normal size aortic root and proximal ascending aorta. CONCLUSIONS Normal LV size and systolic function. No significant abnormality in the Doppler exam. No pericardial effusion Previewed by: Dr. Sandy Tinsley MD (Electronically Signed) Final Date: 23 September 2021 09:23
--- NOTE | 2021-09-23 14:27 | P.PN ---
Subjective Progress Note Date: 09/23/21 Patient was seen for a follow-up. Patient is left-hand dominant. Patient states the headache has almost resolved. Rates it 03/08. No nausea vomiting, light or noise sensitivity. Patient admits that she was slightly photophobic yesterday. Her visual disturbance and speech difficulty has resolved. Telemetry showing sinus bradycardia, sinus rhythm. No other arrhythmia. Objective - Vital Signs Vital signs: Vital Signs Temp 98.7 F 09/23/21 08:00 Pulse 62 09/23/21 08:00 Resp 18 09/23/21 08:00 BP 110/57 09/23/21 08:00 Pulse Ox 98 09/23/21 08:00 FiO2 Intake & Output 09/22/21 09/23/21 09/23/21 18:59 06:59 18:59 Intake Total 120 128 Balance 120 128 Weight 74.843 kg Intake: IV 20 10 Invasive Line 1 20 10 Oral 100 118 Other: Voiding Method Toilet # Voids 2 - Exam Patient is a young female, very pleasant, in no acute distress. Patient is alert awake oriented to time place and person. Speech and language functions are normal. No aphasia or dysarthria. Patient can name all 5 objects presented, repeat without any difficulty. Patient can read, write without any difficulty. No paraphasic errors. No hesitancy. Attention, concentration and fund of knowledge is adequate. On cranial examination, pupils are round and reacting to light, visual gambino are full on confrontation, with no neglect on double simultaneous stimulation. Her extraocular muscles are intact with no nystagmus. Face is symmetric, tongue protrudes to the midline. Palatal elevation and sensation normal, hearing and shoulder shrug normal, facial sensation normal. Shoulder shrug normal. On muscle strength testing, there is no pronator drift and the strength is normal in arms and legs distally and proximally. Deep tendon reflexes are symmetric, 1 in the upper limbs, 2 at the knees, 1 at ankles and plantars downgoing bilaterally. Sensory to touch is equal with no neglect on double simultaneous stimulation involving the face, arms or the legs. Cerebellar function showed no ataxia for vkkvad-rq-iciv testing. No ataxia for pxvt-rq-yvky testing. No dysdiadochokinesia. Tone and bulk of muscles normal. Gait normal. On general examination, there is no carotid bruit or murmur, S1-S2 audible. Abdomen is soft nontender. Chest is clear. Peripheral pulses are present. No edema. - Labs CBC & Chem 7: 09/23/21 05:16 09/23/21 05:16 Labs: Abnormal Lab Results - Last 24 Hours (Table) 09/23/21 Range/Units 05:16 Sodium 136 L (137-145) mmol/L Chloride 108 H (98-107) mmol/L Assessment and Plan Assessment: * Probable complex migraine. TIA less likely. * History of migraine with aura. * Strong family history of migraines. * Use of copper containing IUD. Plan: * Patient is undergoing TIA workup. Await MRI of the brain. * 2-D echo revealed normal left-ventricular size and systolic function. EF is 55-60%. Left atrial size is normal. No evidence of an inter atrial septal defect. * Hemoglobin A1c 5.5, * Lipid panel is perfect, cholesterol 122, LDL 67, triglycerides 51 and HDL 44. No indications for statins because LDL is <70. TSH normal.. * If the MRI is negative, then would recommend discharge on Ubrelvy 50 mg or Fioricet as needed for migraine. Update 4 PM: MRI of the brain revealed left proximal temporal lobe acute infarct. I personally reviewed MRI of the brain, and appears to involve small area of left temporal lobe. Appears embolic in nature. I came back and saw the patient, discussed MRI results. Patient's repeat examination performed as mentioned above, and is completely normal. NIH stroke scale is 0. No deficits noted. Patient will undergo MRV head to rule out venous sinus thrombus. I personally reviewed CTA of head and neck, and is normal. No thrombus noted. Cardiology consult for EDUARD. Hematology consultation for hypercoagulable workup. Patient is on IUD, but is nonmedicated, only copper containing. Continue telemetry monitoring. Continue aspirin 325 mg daily. Hold off on DAP, as her NIH stroke scale is 0. May risk for hemorrhage with DAP. We will follow. Discussed with patient's in detail as well. Time with Patient: Greater than 30
--- NOTE | 2021-09-23 15:29 | MR ---
EXAMINATION TYPE: MR brain wo con DATE OF EXAM: 09/23/2021 COMPARISON: 09/22/2021 CT brain HISTORY: Aphasia CONTRAST: Performed utilizing 0 mL intravenous Gadavist gadolinium contrast. TECHNIQUE: Multiplanar, multiecho imaging on a 3.0 Vidya magnet is performed through the brain. Stud y is performed within 24 hours of arrival to the hospital. The craniovertebral junction is normal. The pituitary is normal. Diffusion-weighted imaging is performed. There is a left temporal area of increased signal on diffus ion compatible with an acute infarct. The suspected acute infarct is also evident on the T2 weighted images as increased signal. Significan t mass effect is not identified. Ventricles and sulci are appropriate for the patient age. IMPRESSIONS: 1. Left proximal temporal lobe acute infarct.
--- NOTE | 2021-09-23 16:14 | P.PN ---
Subjective Progress Note Date: 09/23/21 Hospital course: Patient is a very pleasant 31-year-old female with past medical history of migraines and copper IUD placement. She presented to the emergency department with a chief complaint of left-sided headache and slurred speech. Patient reported going to bed the night before around 11 PM in usual state of health and awakening the next morning with slurred speech and word finding difficulties, as well as a severe headache to left temporal region. She underwent full evalua tion in the emergency department. Vital signs were unremarkable. CBC, coags, and CMP all unremarkable. Troponin less than 0.012. TSH 1.300. And lipid profile unremarkable. CT head negative for acute intercranial abnormality. CTA head and neck negative for acute process showing no evidence of dissection, stenosis, or aneurysm. EKG showing normal sinus rhythm at 79 bpm with no noted T-wave or ST abnormalities. Echocardiogram revealing normal EF 55-60% with no reported valvular or structural abnormalities. Physical exam: Patient was seen and fully evaluated at the bedside. She reports full resolution of slurred speech and expressive aphasia. She reports mild headache remains to left temporal region otherwise denies having any other complaints including dizziness, lightheadedness, changes in vision or hearing, dysphagia, chest pain, palpitations, shortness of breath, or experiencing any numbness/tingling/weakness in her face, lips, tongue, or upper and lower extremities. Awaiting MRI to be completed. Vital signs reviewed and stable. General: Nontoxic, no distress and appears stated age. Derm: Skin warm and dry, normal coloration for ethnicity. Head: Atraumatic, normocephalic and symmetric. Eyes: EOMs intact, no lid lag, and anicteric sclera Mouth: no lip lesions, mucus membranes moist Cardiovascular: regular rate and rhythm with normal S1S2, no murmur, positive posterior tibial pulses bilaterally, and cap refill < 2 seconds. Lungs: Respirations even, regular, and unlabored on room air. Lungs CTA bilaterally, no rhonchi, no rales, no wheezing, and no accessory muscle usage. Abdominal: soft, nontender to palpation, no guarding, no appreciable organomega ly Ext: ROM intact. No gross muscle atrophy, no edema, no contractures Neuro: Speech clear, face symmetrical and CN II-XII grossly intact with no noted focal neuro deficits Psych: Alert and oriented to person, place, time, and situation. Appropriate and pleasant affect. Assessment and Plan of Care: Left-sided headache Aphasia Slurred speech History of migraines with visual auras -Neurology following -Lipid profile unremarkable. -Echocardiogram revealing normal EF of 55-60% with no reported valvular or structural abnormalities. -Aspirin daily -Neurochecks -Telemetry monitoring CODE STATUS: Full code DVT prophylaxis: Lovenox Discussed with: Patient and RN Anticipated discharge date: clinical course to determine, awaiting MRI results Anticipated discharge place: Home. A total of 36 minutes was spent on the care of this complex patient more than 50% of the time was spent in counseling and care coordination. Objective - Vital Signs Vital signs: Vital Signs Temp 97.7 F 09/23/21 03:47 Pulse 60 09/23/21 03:47 Resp 19 09/23/21 03:47 BP 101/62 09/23/21 03:47 Pulse Ox 97 09/23/21 03:47 FiO2 Intake & Output 09/22/21 09/23/21 09/23/21 18:59 06:59 18:59 Intake Total 120 118 Balance 120 118 Weight 74.843 kg Intake: IV 20 Invasive Line 1 20 Oral 100 118 Other: Voiding Method Toilet # Voids 2 - Labs CBC & Chem 7: 09/23/21 05:16 09/23/21 05:16 Labs: Abnormal Lab Results - Last 24 Hours (Table) 09/22/21 09/23/21 Range/Units 09:51 05:16 Hct 47.2 H (34.0-46.0) % Sodium 136 L (137-145) mmol/L Chloride 108 H (98-107) mmol/L
[2021-09-23] MEDS: ENOXAPARIN 40 MG/0.4 ML SYRINGE SQ SCH (18:06)
--- NOTE | 2021-09-23 19:32 | MR ---
EXAMINATION TYPE: MR venography head wo con DATE OF EXAM: 09/23/2021 COMPARISON: MRI 09/23/2021 HISTORY: CVA, rule out venous sinus thrombus TECHNIQUE: Departmental MR venography without contrast protocol FINDINGS: Dural venous sinuses are widely patent. No evidence for venous sinus thrombosis. No incidental findin gs. IMPRESSION: Negative examination.
[2021-09-23] MEDS: ACETAMINOPHEN TAB 325 MG TAB PO PRN (23:29)
[2021-09-24 01:48] LABS: Cardiolipin Ab IgG Interp NEGATIVE (NEGATIVE); Cardiolipin Ab IgM Interp NEGATIVE (NEGATIVE); Cardiolipin IgA Antibody <2.0 U/mL; Cardiolipin IgM Antibody <1.5 U/mL
[2021-09-24] MEDS: ACETAMINOPHEN TAB 325 MG TAB PO PRN (08:22)
[2021-09-24] MEDS: ASPIRIN 325 MG TAB PO SCH (08:23)
[2021-09-24] MEDS: ENOXAPARIN 40 MG/0.4 ML SYRINGE SQ SCH (08:23)
[2021-09-24] MEDS ORDERED: fentaNYL (PF) 50 MCG/ML 2 ML AMP ONE (08:59)
[2021-09-24] MEDS ORDERED: SODIUM CHLORIDE 0.9% 500 ML 500 ML IV ONE (09:12)
--- NOTE | 2021-09-24 09:20 | P.CRDCN ---
History of Present Illness History of present illness: This is a pleasant 31-year-old female with history of migraine with aura. 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 We have been asked to see in consultation for EDUARD. Patient presented to the hospital came to the hospital with left-sided headache and slurred speech. MRI of the brain revealed left proximal temporal lobe acute infarct. Patient seen and examined at bedside, no acute distress. She denies any chest pain or shortness of breath. Overall her symptoms have improved. No further specific difficulties. She denies any history of CAD, SD, prior stroke, hypertension, dyslipidemia. She denies any family history of strokes or heart disease. She denies any alcohol, illicit drug use or tobacco use. DIAGNOSTICS * EKG reveals sinus rhythm, rate 79, no acute ST ST wave abnormalities noted. * Echocardiogram revealed EF 5560 percent, no significant wall motion or valvular abnormalities. No pericardial effusion * Telemetry tracings indicate sinus mechanism, no evidence of A. fib/flutter. No evidence of any arrhythmia * Brain MRI with left proximal temporal lobe acute infarct * CT angiogram head and neck revealed no evidence of high-grade stenosis of intracranial aneurysm. No evidence of dissection of the cervical internal carotid arteries and vertebral arteries * Chest is seen with no significant cardiopulmonary process * Laboratory reviewed, sodium 136, potassium 4.6, BUN 13, serum creatinine 0.7, cbc unremarkable, triglycerides 51, cholesterol 122, LDL 67, HDL 44, TSH within normal limits * Current home cardiac medications include none REVIEW OF SYSTEMS At the time of my exam: Patient symptoms have resolved CONSTITUTIONAL: Denies fever or chills. CARDIOVASCULAR: Denies chest pain, shortness of breath, orthopnea, PND or palpitations. RESPIRATORY: Denies cough. GASTROINTESTINAL: Denies abdominal pain, diarrhea, constipation, nausea or vomiting. MUSCULOSKELETAL: Denies myalgias. NEUROLOGIC: Denies numbness, tingling, headacbe or weakness. ENDOCRINE: Denies fatigue, weight change, polydipsia or polyurina. GENITOURINARY: Denies burning, hematuria or urgency with micturation. HEMATOLOGIC: Denies history of anemia or bleeding. PHYSICAL EXAMINATION Blood pressure 107/73, heart rate 87, afebrile, saturation 98% on room air CONSTITUTIONAL: No apparent distress. HEENT: Head is normocephalic. Pupils are equal, round. Sclerae anicteric. Mucous membranes of the mouth are moist. No JVD. No carotid bruit. CHEST EXAMINATION: Lungs are clear to auscultation. No chest wall tenderness is noted on palpation or with deep breathing. HEART EXAMINATION: Regular rate and rhythm. S1, S2 heard. No murmurs, gallops or rub. ABDOMEN: Soft, nontender. Positive bowel sounds. EXTREMITIES: 2+ peripheral pulses, no lower extremity edema and no calf tenderness. NEUROLOGIC EXAMINATION: Patient is awake, alert and oriented x3. ASSESSMENT Acute left proximal temporal lobe CVA History of migraines Family history of migraines PLAN Plan for EDUARD with Dr. Michael today. Patient is agreeable I have discussed the risks, benefits and alternative therapies for the above-m entioned procedure and for both sedation/analgesia, as they pertain to this patient. The patient has indicated understanding and acceptance of the risks and procedures discussed. Questions have been answered appropriately and she is agreeable to move forward with the above-stated procedure. Nurse practitioner note has been reviewed by physician. Signing provider agrees with the documented findings, assessment, and plan of care. Past Medical History Past Medical History: No Reported History History of Any Multi-Drug Resistant Organisms: None Reported Past Surgical History: No Surgical Hx Reported Past Anesthesia/Blood Transfusion Reactions: No Reported Reaction Past Psychological History: No Psychological Hx Reported Smoking Status: Never smoker Past Alcohol Use History: None Reported Past Drug Use History: None Reported - Past Family History Mother Family Medical History: No Reported History Medications and Allergies Home Medications Medication Instructions Recorded Confirmed Type No Known Home Medications 09/22/21 09/22/21 History Allergies Allergy/AdvReac Type Severity Reaction Status Date / Time No Known Allergies Allergy Verified 09/22/21 10:43 Physical Exam Vitals: Vital Signs Temp Pulse Pulse Resp BP Pulse Ox 09/24/21 04:36 98.2 F 76 17 108/71 97 09/24/21 01:31 59 L 96 16 09/23/21 23:20 98.7 F 65 16 136/66 97 09/23/21 20:35 98.9 F 71 16 112/71 99 09/23/21 20:34 59 L 96 16 09/23/21 16:00 95 18 116/80 98 09/23/21 12:00 68 18 118/69 98 09/23/21 08:00 98.7 F 62 18 110/57 98 Intake and Output 09/23/21 09/24/21 09/24/21 22:59 06:59 14:59 Intake Total 550 10 Output Total 250 250 Balance 300 -240 Intake: IV 10 10 Invasive Line 1 10 10 Oral 540 Output: Urine 250 250 Other: Voiding Method Toilet Toilet Results 09/23/21 05:16 09/23/21 05:16 Lipids 09/23/21 Range/Units 05:16 Triglycerides 51.20 (0.00-149.00) mg/dL Cholesterol 122.00 (0.00-200.00) mg/dL HDL Cholesterol 44.60 (40.00-60.00) mg/dL Cholesterol/HDL Ratio 2.74 Ratio Current Medications Generic Name Dose Route Start Last Admin Trade Name Rikq PRN Reason Stop Dose Admin Acetaminophen 650 mg 09/22/21 15:17 09/23/21 23:29 Acetaminophen Tab 325 Mg Tab PO 650 mg Q6HR PRN Administration Fever and/ or Pain Aspirin 325 mg 09/24/21 09:00 Aspirin 325 Mg Tab PO DAILY SHERRIE Enoxaparin Sodium 40 mg 09/23/21 16:00 09/23/21 18:06 Enoxaparin 40 Mg/0.4 Ml Syringe SQ 40 mg DAILY SHERRIE Administration Sodium Chloride 1,000 mls @ 100 mls/hr 09/22/21 13:45 09/23/21 21:00 Saline 0.9% IV Not Given .Q10H SHERRIE Intake and Output 09/23/21 09/24/21 09/24/21 22:59 06:59 14:59 Intake Total 550 10 Output Total 250 250 Balance 300 -240 Intake: IV 10 10 Invasive Line 1 10 10 Oral 540 Output: Urine 250 250 Other: Voiding Method Toilet Toilet 09/23/21 05:16 09/23/21 05:16
[2021-09-24] MEDS ORDERED: BENZOCAINE SPRAY 1 CAN MUCOUS MEM ONE (09:25)
[2021-09-24] MEDS ORDERED: fentaNYL (PF) 50 MCG/ML 2 ML AMP IVP ONE (09:36)
[2021-09-24] MEDS: MIDAZOLAM 2 MG/2 ML VIAL IVP ONE ×2 (09:36→09:53)
[2021-09-24 11:47] LABS: APTT 40 Sec(s) (<43); Dilute Russell Viper Venom 37 Sec(s) (<44)
--- NOTE | 2021-09-24 11:54 | ECHOT ---
TRANSESOPHAGEAL ECHOCARDIOGRAM INDICATION: CVA to rule out cardiac source of thromboembolic phenomenon. PROCEDURE NOTE: After obtaining informed consent, transesophageal echocardiogram was performed in left lateral position using an Omniplane probe. Local and IV sedation were obtained with Xylocaine spray, Versed and fentanyl. Total sedation time was 10 minutes. She tolerated the procedure well without any obvious immediate complications. We performed 2D, color Doppler and spectral analysis. FINDINGS: 1. No intracardiac thrombus within the left atrial appendage, left atrium, right atrium, right ventricle. 2. Left ventricle has normal size and systolic function. 3. Interatrial septum: There is no evidence of thrv-[id number] shunt by color-flow Doppler or [id number]-nh-[id number] shunt by agitated saline contrast study. 4. Ascending aorta appears within normal limits. 5. There is trace mitral and tricuspid regurgitation noted. 6. Aortic valve is a 3-leaflet valve without any evidence of stenosis. CONCLUSIONS: No intracardiac source for thromboembolic phenomenon. No evidence of shunting across the interatrial septum. Normal ejection fraction. MMODL / IJN: [id number] /
--- NOTE | 2021-09-24 13:49 | P.CONS ---
History of Present Illness - Reason for Consult Consult date: 09/24/21 CVA - History of Present Illness Mrs Ramsay is a 31-year-old woman with history of migraines who presented for left-sided headache and slurred speech. Initially on presentation felt to have been related to migraines or TIA, although further work-up confirmed MRI of the brain confirmed left temporal lobe acute infarct. Patient further denies drinking, drugs, smoking. She's never been diagnosed with hyperlipidemia. She does not have a family history of strokes. She has never had an issue like this before. Review of Systems All systems: negative Constitutional: Reports as per HPI Past Medical History Past Medical History: No Reported History History of Any Multi-Drug Resistant Organisms: None Reported Past Surgical History: No Surgical Hx Reported Past Anesthesia/Blood Transfusion Reactions: No Reported Reaction Past Psychological History: No Psychological Hx Reported Smoking Status: Never smoker Past Alcohol Use History: None Reported Past Drug Use History: None Reported - Past Family History Mother Family Medical History: No Reported History Medications and Allergies Home Medications Medication Instructions Recorded Confirmed Type No Known Home Medications 09/22/21 09/22/21 History Allergies Allergy/AdvReac Type Severity Reaction Status Date / Time No Known Allergies Allergy Verified 09/22/21 10:43 Physical Exam Vitals: Vital Signs Temp Pulse Pulse Resp BP Pulse Ox 09/24/21 12:00 18 113/65 93 L 09/24/21 08:00 99.1 F 87 16 107/73 98 09/24/21 04:36 98.2 F 76 17 108/71 97 09/24/21 01:31 59 L 96 16 09/23/21 23:20 98.7 F 65 16 136/66 97 09/23/21 20:35 98.9 F 71 16 112/71 99 09/23/21 20:34 59 L 96 16 09/23/21 16:00 95 18 116/80 98 Intake and Output 09/23/21 09/24/21 09/24/21 22:59 06:59 14:59 Intake Total 550 10 160 Output Total 250 250 Balance 300 -240 160 Intake: IV 10 10 160 Invasive Line 1 10 10 10 Oral 540 Output: Urine 250 250 Other: Voiding Method Toilet Toilet - Constitutional General appearance: cooperative, no acute distress - EENT Eyes: EOMI ENT: NA/AT - Neck Neck: normal ROM - Respiratory Respiratory: bilateral: diminished - Cardiovascular Rhythm: regular - Gastrointestinal General gastrointestinal: soft - Integumentary Integumentary: pale - Musculoskeletal Musculoskeletal: generalized weakness, right sided weakness Results CBC & Chem 7: 09/23/21 05:16 09/23/21 05:16 Assessment and Plan (1) Cerebrovascular accident (CVA) Current Visit: Yes Status: Acute Code(s): I63.9 - CEREBRAL INFARCTION, UNSPECIFIED SNOMED Code(s): 960644015 Plan: Await antiphospholipid work-up Patient to see Dr. Sally Abreu in 3-4 weeks for full hypercoag work-up Attests: I have completed the full history and physical and developed the above impression and plan, agree with dictation, dictated as a ascribe.
[2021-09-24 14:16] LABS: Prothrombin 20210A Mutation Negative
--- NOTE | 2021-09-24 15:35 | P.PN ---
Subjective Progress Note Date: 09/24/21 Hospital course: Patient is a very pleasant 31-year-old female with past medical history of migraines and copper IUD placement. She presented to the emergency department with a chief complaint of left-sided headache and slurred speech. Patient reported going to bed the night before around 11 PM in usual state of health and awakening the next morning with slurred speech and word finding difficulties, as well as a severe headache to left temporal region. She underwent full evalua tion in the emergency department. Vital signs were unremarkable. CBC, coags, and CMP all unremarkable. Troponin less than 0.012. TSH 1.300. And lipid profile unremarkable. CT head negative for acute intercranial abnormality. CTA head and neck negative for acute process showing no evidence of dissection, stenosis, or aneurysm. EKG showing normal sinus rhythm at 79 bpm with no noted T-wave or ST abnormalities. Echocardiogram revealing normal EF 55-60% with no reported valvular or structural abnormalities. MRI resulting revealing acute infarct to left proximal temporal lobe. Notified neurologist, Dr. Farrar and updated him on results. Patient to continue daily aspirin and neurology re commending to hold off on Plavix and atorvastatin at this time secondary to unremarkable lipid profile. Consult was placed to cardiology for EDUARD and hematology for hypercoagulable workup. MRV negative. Cardiolipin IgG, IgA, and IgM are negative. Lupus anticoagulant negative. Prothrombin mutation also negative. EDUARD negative for PFO showing no intracardiac source for thromboembolic phenomenon. Physical exam: Patient seen and fully evaluated at bedside. Patient's and her best friend were also at bedside and everyone was updated on results and current plan of care. Awaiting clearance from neurology the tentative plan is for patient to be discharged home tomorrow morning with Holter monitor. Patient remains free from any difficulties with speech. She reports having a slight headache remaining to left temporal region and feeling a little "foggy". She continues to deny having any changes in her vision, hearing, tinnitus, chest pain, palpitations, shortness of breath, or experiencing any numbness/tingling/weakness in her extremities. Vital signs reviewed and stable. General: Nontoxic, no distress and appears stated age. Derm: Skin warm and dry, normal coloration for ethnicity. Head: Atraumatic, normocephalic and symmetric. Eyes: EOMs intact, no lid lag, and anicteric sclera Mouth: no lip lesions, mucus membranes moist Cardiovascular: regular rate and rhythm with normal S1S2, no murmur, positive posterior tibial pulses bilaterally, and cap refill < 2 seconds. Lungs: Respirations even, regular, and unlabored on room air. Lungs CTA bilaterally, no rhonchi, no rales, no wheezing, and no accessory muscle usage. Abdominal: soft, nontender to palpation, no guarding, no appreciable organomegaly Ext: ROM intact. No gross muscle atrophy, no edema, no contractures Neuro: Speech clear, face symmetrical and CN II-XII grossly intact with no noted focal neuro deficits Psych: Alert and oriented to person, place, time, and situation. Appropriate and pleasant affect. Assessment and Plan of Care: Acute embolic CVA with MRI evidence of acute left proximal temporal lobe infarct Left-sided headache Aphasia Slurred speech History of migraines with visual auras -Neurology following -Cardiology following -Lipid profile unremarkable. -Echocardiogram revealing normal EF of 55-60% with no reported valvular or structural abnormalities. -MRI resulting revealing acute infarct to left proximal temporal lobe. -Continue daily aspirin and neurology recommending to hold off on Plavix and atorvastatin at this time secondary to unremarkable lipid profile. -MRV negative. -Cardiolipin IgG, IgA, and IgM are negative. Lupus anticoagulant negative. Prothrombin mutation also negative. -EDUARD negative for PFO showing no intracardiac source for thromboembolic phenome non. -Neurochecks -Telemetry monitoring -Order placed for Holter monitor as patient will need discharged home with Holter monitor CODE STATUS: Full code DVT prophylaxis: Lovenox Discussed with: Patient, patient and RN Anticipated discharge date: Likely tomorrow morning Anticipated discharge place: Home. A total of 39 minutes was spent on the care of this complex patient more than 50% of the time was spent in counseling and care coordination. Objective - Vital Signs Vital signs: Vital Signs Temp 98.2 F 09/24/21 04:36 Pulse 76 09/24/21 04:36 Resp 17 09/24/21 04:36 BP 108/71 09/24/21 04:36 Pulse Ox 97 09/24/21 04:36 FiO2 Intake & Output 09/23/21 09/24/21 09/24/21 18:59 06:59 18:59 Intake Total 256 560 Output Total 500 Balance 256 60 Intake: IV 20 20 Invasive Line 1 20 20 Oral 236 540 Output: Urine 500 Other: Voiding Method Toilet - Labs CBC & Chem 7: 09/23/21 05:16 09/23/21 05:16
[2021-09-24] MEDS: SODIUM CHLORIDE 0.9% 1,000 ML IV SCH (16:26)
[2021-09-25] MEDS: SODIUM CHLORIDE 0.9% 1,000 ML IV SCH (02:52)
--- NOTE | 2021-09-25 09:11 | P.PN ---
Subjective Progress Note Date: 09/24/21 Patient was seen for a follow-up. Further history obtained from the patient. Patient states that the night prior to her stroke, she slept in usual state of health between 10-11 PM. She woke up at 7 AM with stroke symptoms including bad headache and visual symptoms, therefore the stroke probably happened overnight. Patient was not a candidate for TPA. Her NIH stroke scale was also 0 in the ER. Patient has history of sinus headaches sporadically. Patient is left-hand dominant. Patient states the headache has almost resolved. Rates it 1/10. No nausea vomiting, light or noise sensitivity. Her visual disturbance and speech difficulty has completely resolved. Objective - Vital Signs Vital signs: Vital Signs Temp 99.1 F 09/24/21 08:00 Pulse 87 09/24/21 08:00 Resp 18 09/24/21 12:00 BP 113/65 09/24/21 12:00 Pulse Ox 93 L 09/24/21 12:00 FiO2 Intake & Output 09/23/21 09/24/21 09/24/21 18:59 06:59 18:59 Intake Total 256 560 170 Output Total 500 Balance 256 60 170 Intake: IV 20 20 170 Invasive Line 1 20 20 20 Oral 236 540 0 Output: Urine 500 Other: Voiding Method Toilet - Exam Patient's mental status, speech and language functions are normal. Patient's naming and repetition is normal. No paraphasic errors noted. Sensations equal. No pronator drift. No ataxia. Tone and bulk of muscles normal. - Labs CBC & Chem 7: 09/23/21 05:16 09/23/21 05:16 Assessment and Plan Assessment: * Probable complex migraine, with acute ischemic stroke. * No embolic source identified. * History of migraine with aura. * Strong family history of migraines. * Use of copper containing IUD. Plan: * EDUARD was performed today, which revealed no intracardiac thrombus within the left atrial appendage, left atrium, right atrium or right ventricle. Normal left ventricular size and function. Interatrial septum intact with no evidence of left to right shunt by color flow Doppler, all [id number] shunt by agitated saline contrast study. Ascending aorta appears within normal limits. There is trace MR, TR. Aortic valves normal. Cardiology input appreciated. * MRV brain negative for venous sinus thrombus. * CTA of head and neck negative for any occlusion, thrombus. * Telemetry monitoring showing no arrhythmia. * Agree with 30 day event monitoring rule out PAF. * Hypercoagulable workup including factor V Leiden mutation, lupus anticoagulants, cardiolipin antibodies, prothrombin gene mutation, all normal or negative. Hematology on board. * Hemoglobin A1c 5.5, * Lipid panel is perfect, cholesterol 122, LDL 67, triglycerides 51 and HDL 44. No indications for statins because LDL is <70. TSH normal.. * MRI of the brain revealed left proximal temporal lobe acute infarct. I per sonally reviewed MRI of the brain, and appears to involve small area of left temporal lobe. Appears embolic in nature. * Continue aspirin 325 mg daily. Hold off on DAP, as her NIH stroke scale is 0. May risk for hemorrhage with DAP. * Patient recommended to keep a watch of any headaches or aura's. She may benefit from migraine preventative medication, like Inderal. Recommended never to take Triptans group of medications. * Discussed with patient's in detail as well. Addendum: Dr. Coreas gave me a call at 7:31 PM, (at request of patient's ) and discussed with me about the patient's MRI and clinical condition. We discussed about DAP. As patient has no deficits whatsoever, I feel, adding Plavix to the regimen has more risks than benefits. Therefore we will maintain on aspirin 325 mg only. He also discussed about adding Lipitor. Informed Dr Coreas that patient's li pids are perfectly normal. He suggested short-term Lipitor 10 mg daily. Time with Patient: Greater than 30
[2021-09-25] MEDS: ENOXAPARIN 40 MG/0.4 ML SYRINGE SQ SCH (09:14)
[2021-09-25] MEDS: ACETAMINOPHEN TAB 325 MG TAB PO PRN (09:14)
[2021-09-25] MEDS: ASPIRIN 325 MG TAB PO SCH (09:14)
[2021-09-25 10:04] VITALS: BP 107/69; PULSE 67; RESP 16; TEMP 98.6
--- NOTE | 2021-09-25 10:26 | P.DS ---
Providers Date of admission: 09/23/21 15:40 Expected date of discharge: 09/25/21 Attending physician: Tesfaye Malagon MD Consults: 09/22/21 13:33 Consult Physician Routine Consulting Provider: Justyn Farrar Consult Reason/Comments: TIA Do you want consulting provider notified?: Yes 09/23/21 15:52 Consult Physician Urgent Consulting Provider: Mir Michael Consult Reason/Comments: EDUARD, pt with acute CVA Do you want consulting provider notified?: Yes 09/23/21 15:54 Consult Physician Urgent Consulting Provider: Len Palumbo Consult Reason/Comments: hypercoagulable workup Do you want consulting provider notified?: Yes Primary care physician: Stated None Hospital Course: Discharge Diagnosis: 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 Patient has been started on aspirin 325 mg and Lipitor 10 mg daily, neurology recommending holding off on Plavix at this time. Acute ischemic CVA is believed to be secondary to complex migraine. Patient started on propranolol low dose for migraine prophylaxis. Patient also being discharged home on 30 day event monitor. Patient to follow up outpatient with PCP, cardiology, neurology, and hematology. Complex migraine Hospital Course: Patient is a very pleasant 31-year-old female with past medical history of migraines and copper IUD placement. She presented to the emergency department with a chief complaint of left-sided headache and slurred speech. Patient reported going to bed the night before around 11 PM in usual state of health and awakening the next morning with slurred speech and word finding difficulties, as well as a severe headache to left temporal region. She underwent full evaluation in the emergency department. Vital signs were unremarkable. CBC, coags, and CMP all unremarkable. Troponin less than 0.012. TSH 1.300. And lipid profile unremarkable. CT head negative for acute intercranial abnormality. CTA head and neck negative for acute process showing no evidence of dissection, stenosis, or aneurysm. EKG showing normal sinus rhythm at 79 bpm with no noted T-wave or ST abnormalities. Echocardiogram revealing normal EF 55-60% with no reported valvular or structural abnormalities. MRI resulting revealing acute infarct to left proximal temporal lobe. Notified neurologist, Dr. Farrar and updated him on results. Patient to continue daily aspirin and neurology recommending to hold off on Plavix and atorvastatin at this time secondary to unremarkable lipid profile. Consult was placed to cardiology for EDUARD and hematology for hypercoagulable workup. MRV negative. Cardiolipin IgG, IgA, and IgM are negative. Lupus anticoagulant negative. Prothrombin mutation also negative. EDUARD negative for PFO showing no intracardiac source for thromboembolic phenomenon. Event Monitor was placed and patient to undergo monitoring 30 days and follow up outpatient with cardiology. Patient is medically stable at this time she has been diagnosed with an acute ischemic CVA believed to be resulted from complex migraine. She has been started on aspirin 325 mg daily, Lipitor 10 mg daily, and propranolol 20 mg twice daily. Patient to follow up outpatient with neurology, cardiology, and hematology. Physical exam: Vital signs reviewed and stable. General: Nontoxic, no distress and appears stated age. Derm: Skin warm and dry, normal coloration for ethnicity. Head: Atraumatic, normocephalic and symmetric. Eyes: EOMs intact, no lid lag, and anicteric sclera Mouth: no lip lesions, mucus membranes moist Cardiovascular: regular rate and rhythm with normal S1S2, no murmur, positive posterior tibial pulses bilaterally, and cap refill < 2 seconds. Lungs: Respirations even, regular, and unlabored on room air. Lungs CTA bilaterally, no rhonchi, no rales, no wheezing, and no accessory muscle usage. Abdominal: soft, nontender to palpation, no guarding, no appreciable organomegaly Ext: ROM intact. No gross muscle atrophy, no edema, no contractures Neuro: Speech clear, face symmetrical and CN II-XII grossly intact with no noted focal neuro deficits Psych: Alert and oriented to person, place, time, and situation. Appropriate and pleasant affect. A total of 39 minutes of time were spent preparing this complex discharge summary. Pt was discharged on 09/25/21 at 10:19 AM. Patient Condition at Discharge: Stable Plan - Discharge Summary New Discharge Prescriptions: New Aspirin 325 mg PO DAILY 60 Days #60 tab Atorvastatin [Lipitor] 10 mg PO HS 30 Days #30 tab Propranolol [Inderal] 20 mg PO BID 30 Days #60 tab Discharge Medication List Aspirin 325 mg PO DAILY 60 Days #60 tab 09/25/21 [Rx] Atorvastatin [Lipitor] 10 mg PO HS 30 Days #30 tab 09/25/21 [Rx] Propranolol [Inderal] 20 mg PO BID 30 Days #60 tab 09/25/21 [Rx] Follow up Appointment(s)/Referral(s): Len Palumbo MD [STAFF PHYSICIAN] - 1 Week Romario Garcia MD [STAFF PHYSICIAN] - 1 Week Jun Kaiser [STAFF PHYSICIAN] - 3 Days Patient Instructions/Handouts: Ischemic Stroke (DC), Stroke (DC), Left Hemispheric Stroke (DC) Activity/Diet/Wound Care/Special Instructions: Activity: As tolerated. Take breaks as needed. Diet: Heart healthy and carb consistent diet. Avoid salts, or foods with hidden salts such as canned or boxed foods and frozen dinners. Extra salt makes your heart work harder and traps the fluid in your body for longer. Special Instructions: Take all of your medications as directed and remember to keep all of your doctor's appointments and follow-up as needed. The Neurologist I strongly recommend you seeing is: Dr. Rey Guaman [id number] [place] [address] It is recommended to keep a watch of any headaches or aura's and notify your neurologist immediately if one develops. You may benefit from migraine preventative medication, like Inderal we have started you on a low dose and this may be tapered up as tolerated by your neurologist. Recommended NEVER to take Triptans group of medications. You will continue to wear your event monitor for 30 days, please follow instructions given to you and should follow up outpatient with cardiology and their office. Thank you for allowing us to participate in your care, it was TRULY A PLEASURE having you for our patient!!! Discharge Disposition: HOME SELF-CARE
--- NOTE | 2021-09-25 13:30 | P.PN ---
Progress Note - Text Progress Note Date: 09/25/21 Telephone documentation of multiple encounters: I discussed case with Dr. Whiting, radiologist about MRI of the brain. On SWI, there is no evidence of microhemorrhages. He also reviewed CTA of head and neck, and is completely normal, no large vessel occlusion, and there is no paucity of vasculature on the left side. I spoke to patient on the phone. Discussed with her about my conversation with Dr. Coreas. She agreed to stay with single agent aspirin, adding Lipitor for short-term. Discussed with Kal [facility]. Patient to be started on low dose propranolol 20 mg twice a day for migraine prophylaxis. She will take one tablet a day for 7 days and then twice a day. Recommend patient to follow up with neurologist as an outpatient. It appears patient's blood pressure is running quite low already. The last blood pressure is 107/69. I called patient's home and recommended to hold off on propranolol, until seen by her new neurologist as an outpatient. Justyn Farrar MD
[2021-09-27 12:06] LABS: APTT 46 Sec(s) (<43); APTT 1:1 Mix 45 Sec(s) (<43); Dilute Russell Viper Venom 35 Sec(s) (<44); Hexagonal Phase Neutralization Negative (Negative)
[2021-09-28 09:23] LABS: Anti-Thrombin III Activity 78 % (79-109)
[2021-09-28 09:47] LABS: Protein C (Activity) 85 % (71-138)
== END 2021-09-25 11:43 | disposition home or self-care (01) | DRG 65 ==
LOC: EC 09:30 → 3SCARD 13:34 → OBSVTOIN 09-23 15:40
PROVIDERS: ADMIT Internal Medicine; ATTEND Internal Medicine
PROC: B24BZZ4 Ultrasonography of Heart with Aorta, Transesophageal (ICD-10-PCS; principal; 2021-09-24 10:05)
DX: I63.49 Cerebral infarction due to embolism of other cerebral artery (principal); G81.91 Hemiplegia, unspecified affecting right dominant side; R47.01 Aphasia; G43.109 Migraine with aura, not intractable, without status migrainosus; R29.700 NIHSS score 0; R47.81 Slurred speech; R47.02 Dysphasia; R00.1 Bradycardia, unspecified; R20.0 Anesthesia of skin; Z95.3 Presence of xenogenic heart valve; Z97.5 Presence of (intrauterine) contraceptive device; Z84.89 Family history of other specified conditions
CPT/HCPCS: 36415; 70450; 70496; 70498; 70544; 70551; 71046; 80048; 80053; 80061; 81240; 81241; 82550; 83036; 83735; 84443; 84484; 85025; 85300; 85301; 85303; 85306; 85598; 85610; 85613; 85730; 85732; 86140; 86146; 86147; 87635; 93005; 93270; 93306; 93312; 93320; 93325; 96360; 96361; 99291